=== PATIENT | female | born 1960 | race Caucasian/White ===

== ENCOUNTER 2021-09-01 13:24 | Inpatient (IN) | payer OTHER ==
[~2021-09-01] VITALS: Ht 167.6 cm; Wt 81.6 kg
[2021-09-01 15:15] LABS: BUN/CREATININE RATIO 24 (0-10); HEMOGLOBIN 13.2 gm/dl (12.3-15.3); RED BLOOD COUNT 4.27 M/UL (4.00-5.10); WHITE BLOOD COUNT 5.4 K/UL (4.5-11.0)
[2021-09-02 02:20] LABS: HEMOGLOBIN 12.6 gm/dl (12.3-15.3); RED BLOOD COUNT 3.97 M/UL (4.00-5.10)
[2021-09-02 02:46] LABS: BUN/CREATININE RATIO 27 (0-10)
[2021-09-02] MEDS ORDERED: BUPRENORPHIN-N1 EACH SL (11:21)
[2021-09-02] MEDS ORDERED: TRAZODONE HCL100 MG PO (11:21)
[2021-09-02] MEDS ORDERED: BUSPIRONE HCL15 MG PO (11:22)
[2021-09-02] MEDS ORDERED: VOLTAREN EC 7575 MG PO (11:23)
[2021-09-02] MEDS ORDERED: CLONIDINE HCL0.1 MG PO (11:23)
[2021-09-02] MEDS ORDERED: ESCITALOPRAM OX20 MG PO (11:24)
[2021-09-02] MEDS ORDERED: LISINOPRIL20 MG PO (11:25)
[2021-09-03 02:56] LABS: HEMOGLOBIN 11.3 gm/dl (12.3-15.3); RED BLOOD COUNT 3.6 M/UL (4.00-5.10)
[2021-09-03 03:01] LABS: WHITE BLOOD COUNT 3.3 K/UL (4.5-11.0)
[2021-09-03 03:18] LABS: BUN/CREATININE RATIO 26 (0-10)
[2021-09-03] MEDS ORDERED: BUSPIRONE HCL15 MG PO (09:36)
[2021-09-03] MEDS ORDERED: CLONIDINE HCL0.1 MG PO (09:36)
[2021-09-03] MEDS ORDERED: VOLTAREN EC 7575 MG PO ×2 (09:36→09:43)
[2021-09-03] MEDS ORDERED: LISINOPRIL20 MG PO (09:36)
[2021-09-03] MEDS ORDERED: TRAZODONE HCL100 MG PO (09:36)
[2021-09-03] MEDS ORDERED: TAB-A-VITE TA400 MC1 PO (09:36)
[2021-09-03] MEDS ORDERED: VITAMIN B-1100 M1 PO (09:36)
[2021-09-03] MEDS ORDERED: ESCITALOPRAM OX20 MG PO (09:36)
[2021-09-03] MEDS ORDERED: PROVENTIL HFA6.7 GM INH (09:37)
== END 2021-09-03 13:10 | disposition home or self-care (01) | DRG 896 ==
LOC: ER1 13:24 → CDU 17:26 → M/S 19:04
PROVIDERS: Family Medicine; Physician Assistant; ADMIT Internal Medicine
PROC: HZ2ZZZZ Detoxification Services for Substance Abuse Treatment (ICD-10-PCS; principal; 2021-09-01)
DX: F10.129 Alcohol abuse with intoxication, unspecified (principal); J96.01 Acute respiratory failure with hypoxia; M62.82 Rhabdomyolysis; F17.200 Nicotine dependence, unspecified, uncomplicated; I16.0 Hypertensive urgency; F32.A Depression, unspecified; I10 Essential (primary) hypertension; Z20.822 Contact with and (suspected) exposure to COVID-19; G47.00 Insomnia, unspecified; Z66 Do not resuscitate; J43.9 Emphysema, unspecified; Z90.49 Acquired absence of other specified parts of digestive tract; Z98.890 Other specified postprocedural states; Z82.49 Family history of ischemic heart disease and other diseases of the circulatory system
CPT/HCPCS: 36415; 36600; 71045; 80048; 80053; 80307; 82550; 82553; 82803; 83690; 83735; 84484; 85025; 93005; 94640; 94664; 94760; 96374; 99285; G0480; J3411; J3475; J7030; U0002